=== PATIENT | female | born 1975 | race Hispanic/Latino ===

== ENCOUNTER → 2022-08-14 | Outpatient (CLI) | payer BC | END | disposition home or self-care (01) | LOC: RAH 11:34 | PROVIDERS: ATTEND Obstetrics & Gynecology | DX: Z12.31 Encounter for screening mammogram for malignant neoplasm of breast (principal); N63.25 Unspecified lump in the left breast, overlapping quadrants | CPT/HCPCS: 77067 ==

== ENCOUNTER → 2023-08-30 | Outpatient (CLI) | payer BC | END | disposition home or self-care (01) | LOC: RAH 11:29 | PROVIDERS: ATTEND Obstetrics & Gynecology | DX: Z12.31 Encounter for screening mammogram for malignant neoplasm of breast (principal) | CPT/HCPCS: 77063; 77067 ==

== ENCOUNTER → 2024-09-04 | Outpatient (CLI) | payer BC | END | disposition home or self-care (01) | LOC: RAH 15:08 | PROVIDERS: ATTEND Obstetrics & Gynecology | DX: Z12.31 Encounter for screening mammogram for malignant neoplasm of breast (principal) | CPT/HCPCS: 77063; 77067 ==

== ENCOUNTER → 2024-12-29 | Outpatient (CLI) | payer BC ==
--- NOTE | 2024-12-30 01:29 | HMCIMG ---
EXAM: THYROID AND NECK ULTRASOUND Technique: High-frequency linear transducer ultrasound of the thyroid gland and adjacent neck was performed with grayscale imaging; color Doppler was available for vascular assessment as needed. Study quality is adequate. Clinical Information: Hypothyroidism, unspecified. Findings: The right thyroid lobe measures approximately 4.3 ??? 1.5 ??? 1.4 centimeters and demonstrates heterogeneous echotexture. The left thyroid lobe measures approximately 4.3 ??? 1.9 ??? 1.6 centimeters and demonstrates heterogeneous echotexture. The isthmus measures approximately 2 millimeters in thickness. A solid hypoechoic nodule in the left thyroid lobe measures approximately 1.6 ??? 1.6 ??? 1.2 centimeters; the nodule is wider than tall on the transverse plane, has smooth margins, and contains no internal echogenic foci or calcifications on this examination. No additional discrete thyroid nodules are identified. No suspicious cervical lymphadenopathy is identified within the imaged neck. Impression: * Left thyroid lobe solid hypoechoic nodule measuring approximately 1.6 centimeters, wider than tall, with smooth margins and no echogenic foci. ACR Thyroid Imaging Reporting and Data System (TI-RADS) scoring: composition solid (2 points), echogenicity hypoechoic (2 points), shape not taller than wide (0 points), margin smooth (0 points), echogenic foci none (0 points); total 4 points ? TI-RADS 4 (moderately suspicious). * Heterogeneous thyroid parenchyma bilaterally, which can be seen with chronic thyroiditis in the appropriate clinical context. Recommendation: * For a TI-RADS 4 nodule measuring 1.6 centimeters, fine-needle aspiration is recommended (biopsy size threshold is 1.5 centimeters for TI-RADS 4). * Correlate with thyroid function tests and clinical evaluation for thyroiditis. * If biopsy is deferred after shared decision-making, consider ultrasound surveillance in approximately one year to assess for interval growth, with earlier follow-up if symptoms develop or there is palpable enlargement. /Rosaura
== END | disposition home or self-care (01) ==
LOC: RAH 10:17
PROVIDERS: ATTEND Physician Assistant Medical
DX: E04.2 Nontoxic multinodular goiter (principal); E03.9 Hypothyroidism, unspecified; E06.9 Thyroiditis, unspecified
CPT/HCPCS: 76536